=== PATIENT | male | born 1955 | race Caucasian/White ===

== ENCOUNTER 2016-07-25 11:44 | Emergency (ER) | payer BC ==
[~2016-07-25] VITALS: Ht 175.3 cm; Wt 82.9 kg
[2016-07-25 11:54] VITALS: TEMP 36.5
[2016-07-25] MEDS: NITROGLYCERIN 0.4 MG SL PER TAB CHARGE SL PRN ×3 (12:13→14:02)
[2016-07-25] MEDS ORDERED: INHALER INH (12:27)
--- NOTE | 2016-07-25 12:36 | DIAGNOSTIC IMAGING REPORT ---
CHEST ONE VIEW PORTABLE HISTORY: Atypical Chest Pain COMPARISON: None. FINDINGS: The heart is mildly enlarged. No pleural effusions. No pneumothorax. Mild bibasilar interstitial thickening is likely chronic. There appears be a 1.7 cm focal density within the periphery of the left midlung zone. IMPRESSION: 1. A 1.7 cm focal density within the periphery of the left midlung zone. Follow-up chest CT is recommended to exclude a pulmonary lesion. 2. Cardiomegaly. Electronically signed by: Lenny Boyd M.D. 07/25/2016 12:35 PM Dictated Date/Time: 07/25/2016 12:29 PM
[2016-07-25 12:45] VITALS: O2SAT 98; Ht 175.3 cm; Wt 82.9 kg
[2016-07-25 12:57] LABS: BASO % 0.2 %; BASO ABS # 0.02 K/uL (0-0.2); COMPLETE YES; EOS % 0.1 %; HEMATOCRIT 44.9 % (42-52); IG% 0.3 %; LYMPH ABS # 2.06 K/uL (1.2-3.4); MEAN CELL VOLUME 88.6 fL (80-100); MEAN CORPUSCULAR HEMOGLOBIN 29.6 pg (25-34); MEAN CORPUSCULAR HGB CONC 33.4 g/dl (32-36); MEAN PLATELET VOLUME 10.9 fL (7.4-10.4); NEUT % 69.4 %; PLATELET COUNT 175 K/uL (130-400); RED BLOOD COUNT 5.07 M/uL (4.7-6.1); WHITE BLOOD COUNT 11.43 K/uL (4.8-10.8)
[2016-07-25 12:59] LABS: BUN/CREATININE RATIO 19.5 (10-20); CALCIUM 8.4 mg/dl (8.5-10.1); CREATININE 1.4 mg/dl (0.60-1.40); POTASSIUM 4.4 mmol/L (3.5-5.1)
[2016-07-25 13:15] LABS: CKMB/CK RATIO 2.5 (0-3.0)
[2016-07-25] MEDS ORDERED: SODIUM CHLORIDE 0.9% 1000ML 1,000 ML IV STA (13:17)
[2016-07-25] MEDS ORDERED: OPTIRAY 320 IV PRN (13:30)
--- NOTE | 2016-07-25 14:53 | DIAGNOSTIC IMAGING REPORT ---
CHEST COMBO ANGIO DISSECTION CLINICAL HISTORY: Chest and epigastric pain. Fluid and chest. Elevated troponin. Evaluate for dissection. COMPARISON STUDY: Chest radiograph performed earlier today. TECHNIQUE: Unenhanced and arterial phase imaging of the chest was performed. Injection of 119 cc Optiray 320 IV was uneventful. Sagittal and coronal reconstructions were viewed as well as maximal intensity projections on an independent 3-D workstation. The abdomen and pelvis will be reported separately. FINDINGS: There is no evidence of intramural hematoma or dissection within the thoracic aorta. There is extensive aortic valvular calcification. There is moderate aortic dilatation of the level of the sinuses of Valsalva, measuring 5.3 cm. There is mild dilatation of the ascending aorta, measuring 4.4 cm just distal to the level of the main pulmonary artery. No pulmonary emboli are identified. There is moderate cardiomegaly. There is no pericardial effusion. A moderate right pleural effusion is present. Right lower lobe opacity favors atelectasis. Additional airspace opacity suggest atelectasis. There are mild groundglass opacities and interlobular septal thickening consistent with pulmonary edema. A possible abnormality on chest radiograph from earlier today was artifactual. Bony thorax is unremarkable. The abdomen and pelvis will be reported separately. There is a small amount of ascites as well as hypodense hepatic lesions which favor cysts. A few prominent mediastinal lymph nodes are present. IMPRESSION: 1. No aortic dissection. Moderate dilatation of the aortic root, measuring 5.3 cm at the level the sinuses of Valsalva with extensive aortic valvular calcification. Mild dilatation of the remainder of the ascending aorta. 2. Moderate right pleural effusion. 3. Moderate to marked cardiomegaly. 4. Findings consistent with mild pulmonary edema. Electronically signed by: Fili Corbin M.D. 07/25/2016 2:51 PM Dictated Date/Time: 07/25/2016 2:40 PM
[2016-07-25] MEDS ORDERED: METOPROLOL TARTRATE 1 MG/ML VIAL IV STA (14:57)
--- NOTE | 2016-07-25 15:00 | DIAGNOSTIC IMAGING REPORT ---
ABDOMEN AND PELVIS CTA WITH IV CONTRAST CT DOSE: 860.68 mGy.cm HISTORY: Left upper quadrant abdominal pain. TECHNIQUE: Multiaxial CT images of the abdomen and pelvis were performed following the use of intravenous contrast to evaluate the aorta. Maximal intensity projection images were also obtained. COMPARISON STUDY: None. FINDINGS: The heart is enlarged. Small right pleural effusion. The abdominal aorta, celiac artery, superior mesenteric artery, renal arteries, and inferior mesenteric artery, and bilateral iliac arteries are widely patent and normal and caliber. No evidence for an aortic dissection. Severe disc space narrowing with fusion of the L5 and S1 vertebral bodies. Small amount of ascites. Mild body wall and retroperitoneal edema. Multiple hypodense lesions seen within the liver. These are incompletely characterized on this study but favor cysts. Dominant lesion within the right hepatic dome measures 2.1 cm. Mild pericholecystic edema. The pancreas, spleen, and adrenal glands are unremarkable. Mild bilateral perinephric edema. There are 2 hypodense lesions within the left kidney measuring 11 mm. Subcentimeter retroperitoneal lymph nodes do not meet CT criteria for pathologic involvement. Small hiatus hernia. The bladder is unremarkable. The prostate gland is mildly enlarged. Small fat-containing bilateral inguinal hernias. A few colonic diverticula. Focal extra luminal gas lateral to the ascending colon on image 219. This measures 3.5 x 1.7 cm. This consistent with a contained microperforation. No evidence for bowel obstruction. IMPRESSION: 1. Normal caliber abdominal aorta with no evidence for dissection. 2. A 3.5 x 1.7 cm focal area of extraluminal gas adjacent to the ascending colon. This is consistent with a contained microperforation. The exact etiology is not clearly identified but favors acute diverticulitis. 3. Colonic diverticulosis. 4. The appendix is not identified. 5. Small amount of ascites and mild body wall and retroperitoneal edema. 6. Mild pericholecystic edema. This is also likely due to the patient's edematous state. However, a superimposed cholecystitis cannot be excluded. Clinical correlation recommended. 7. Cardiomegaly with a small right pleural effusion. Electronically signed by: Lenny Boyd M.D. 07/25/2016 2:58 PM Dictated Date/Time: 07/25/2016 2:43 PM
[2016-07-25] MEDS ORDERED: HEPARIN SOD 5000 UNIT/0.5 ML CARP ONE (15:05)
[2016-07-25] MEDS ORDERED: HEPARIN 25000 UNIT/500 ML D5W ONE (15:05)
[2016-07-25] MEDS ORDERED: PIPERACILLIN/TAZOBACTAM 4.5 GM/100ML D5W IV STA (15:06)
[2016-07-25] MEDS ORDERED: ACETAMINOPHEN 325 MG TAB PO PRN (15:30)
[2016-07-25] MEDS ORDERED: ONDANSETRON INJ 2 MG/ML 2 ML VIAL IV PRN (15:30)
[2016-07-25] MEDS ORDERED: NITROGLYCERIN 0.4 MG SL PER TAB CHARGE SL PRN (15:30)
--- NOTE | 2016-07-25 15:50 | EMERGENCY ROOM VISIT NOTE ---
History Report prepared by Perez: Hemalatha Hernandez Under the Supervision of: Juancho NolascoO. First contact with patient: 11:52 Chief Complaint: OTHER COMPLAINT Stated Complaint: EPIGASTRIC PAIN History of Present Illness The patient is a 60 year old male who presents to the Emergency Room with complaints of worsening chest pain for the past month. 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 He has been having epigastric/left upper quadrant abdominal pain and pain into his left chest and feels a tightness. He notes tightness in his chest and shortness of breath that are worse with exertion and alleviated if he rests. These symptoms have gotten significantly worse over the past week. He to [facility] this morning for evaluation of his symptoms and was sent to the ED for further evaluation. The patient was brought to the ED by ambulance and was given 324 mg of aspirin en route. He rates his current pain as a 5/10 in severity. He denies any personal history of heart disease, diabetes, or hypertension. Pt denies headache, change in vision, fevers, cough, rhinorrhea, sore throat, nausea, vomiting, diarrhea, pain with urination, and melena. He denies any previous head bleeds, head surgery, bleeding in stool, or hematuria. Source of History: patient Onset: 1 month ago Position: chest (left) Symptom Intensity: 5/10 Quality: other (tightness) Timing: worsening Modifying Factors (Worsening): exertion Modifying Factors (Relieving): rest Associated Symptoms: + SOB, + abdominal pain, No fevers, No headache, No sorethroat, No cough, No nausea, No vomiting, No melena, No diarrhea, No urinary symptoms Review of Systems See HPI for pertinent positives & negatives. A total of 10 systems reviewed and were otherwise negative. Past Medical & Surgical Medical Problems: (1) No pertinent past medical history Family History No pertinent history stated. Social History Smoking Status: Never Smoker Smokeless Tobacco Use: No Alcohol Use: none Occupation Status: employed Current/Historical Medications Scheduled PRN [Inhaler], 1 PUFF INH for SOB/Wheezing Allergies Coded Allergies: No Known Allergies (Unverified , 07/25/16) Physical Exam Vital Signs Date Time Temp Pulse Resp B/P (MAP) Pulse Ox O2 Delivery O2 Flow Rate FiO2 07/25/16 17:31 99 Nasal Cannula 2.0 07/25/16 17:30 102 18 102/87 86 Room Air 07/25/16 17:18 102 16 103/85 93 Room Air 07/25/16 17:00 100 18 99/88 96 Room Air 07/25/16 16:34 98 24 101/86 07/25/16 15:58 92 16 95/79 99 Room Air 07/25/16 15:17 101 16 116/100 96 Room Air 07/25/16 15:12 111 116/100 07/25/16 14:55 111 18 111/89 97 Room Air 07/25/16 14:30 112 16 113/93 95 Room Air 07/25/16 14:00 112 18 120/105 96 Room Air 07/25/16 13:10 110 16 120/96 95 Room Air 07/25/16 12:45 98 Room Air 07/25/16 12:45 112 16 118/93 98 Room Air 07/25/16 12:30 110 16 115/87 98 Room Air 07/25/16 12:26 110 07/25/16 12:12 112 16 119/97 98 Room Air 07/25/16 11:54 36.5 115 16 121/93 96 Room Air Physical Exam GENERAL: alert, sitting up in bed, ill appearing, mild distress EYE EXAM: normal conjunctiva OROPHARYNX: no exudate, no erythema, lips, buccal mucosa, and tongue normal and mucous membranes are moist NECK: supple, no nuchal rigidity, no adenopathy, non-tender LUNGS: Clear to auscultation. Normal chest wall mechanics HEART: +JIA, S1 normal and S2 normal ABDOMEN: abdomen soft, non-tender, normo-active bowel sounds, no masses, no rebound or guarding. BACK: Back is symmetrical on inspection and there is no deformity, no midline tenderness, no CVA tenderness. SKIN: no rashes and no bruising UPPER EXTREMITIES: upper extremities are grossly normal. LOWER EXTREMITIES: calves equal bilaterally with pitting edema. NEURO EXAM: Normal sensorium, cranial nerves II-XII grossly intact, normal speech, no gross weakness of arms, no gross weakness of legs. Medical Decision & Procedures ER Provider Diagnostic Interpretation: Radiology results as stated below per my review and the radiologist's interpretation: CHEST ONE VIEW PORTABLE HISTORY: Atypical Chest Pain COMPARISON: None. FINDINGS: The heart is mildly enlarged. No pleural effusions. No pneumothorax. Mild bibasilar interstitial thickening is likely chronic. There appears be a 1.7 cm focal density within the periphery of the left midlung zone. IMPRESSION: 1. A 1.7 cm focal density within the periphery of the left midlung zone. Follow-up chest CT is recommended to exclude a pulmonary lesion. 2. Cardiomegaly. Electronically signed by: Lenny Boyd M.D. 07/25/2016 12:35 PM Dictated Date/Time: 07/25/2016 12:29 PM CHEST COMBO ANGIO DISSECTION CLINICAL HISTORY: Chest and epigastric pain. Fluid and chest. Elevated troponin. Evaluate for dissection. COMPARISON STUDY: Chest radiograph performed earlier today. TECHNIQUE: Unenhanced and arterial phase imaging of the chest was performed. Injection of 119 cc Optiray 320 IV was uneventful. Sagittal and coronal reconstructions were viewed as well as maximal intensity projections on an independent 3-D workstation. The abdomen and pelvis will be reported separately. FINDINGS: There is no evidence of intramural hematoma or dissection within the thoracic aorta. There is extensive aortic valvular calcification. There is moderate aortic dilatation of the level of the sinuses of Valsalva, measuring 5.3 cm. There is mild dilatation of the ascending aorta, measuring 4.4 cm just distal to the level of the main pulmonary artery. No pulmonary emboli are identified. There is moderate cardiomegaly. There is no pericardial effusion. A moderate right pleural effusion is present. Right lower lobe opacity favors atelectasis. Additional airspace opacity suggest atelectasis. There are mild groundglass opacities and interlobular septal thickening consistent with pulmonary edema. A possible abnormality on chest radiograph from earlier today was artifactual. Bony thorax is unremarkable. The abdomen and pelvis will be reported separately. There is a small amount of ascites as well as hypodense hepatic lesions which favor cysts. A few prominent mediastinal lymph nodes are present. IMPRESSION: 1. No aortic dissection. Moderate dilatation of the aortic root, measuring 5.3 cm at the level the sinuses of Valsalva with extensive aortic valvular calcification. Mild dilatation of the remainder of the ascending aorta. 2. Moderate right pleural effusion. 3. Moderate to marked cardiomegaly. 4. Findings consistent with mild pulmonary edema. Electronically signed by: Fili Corbin M.D. 07/25/2016 2:51 PM Dictated Date/Time: 07/25/2016 2:40 PM ABDOMEN AND PELVIS CTA WITH IV CONTRAST CT DOSE: 860.68 mGy.cm HISTORY: Left upper quadrant abdominal pain. TECHNIQUE: Multiaxial CT images of the abdomen and pelvis were performed following the use of intravenous contrast to evaluate the aorta. Maximal intensity projection images were also obtained. COMPARISON STUDY: None. FINDINGS: The heart is enlarged. Small right pleural effusion. The abdominal aorta, celiac artery, superior mesenteric artery, renal arteries, and inferior mesenteric artery, and bilateral iliac arteries are widely patent and normal and caliber. No evidence for an aortic dissection. Severe disc space narrowing with fusion of the L5 and S1 vertebral bodies. Small amount of ascites. Mild body wall and retroperitoneal edema. Multiple hypodense lesions seen within the liver. These are incompletely characterized on this study but favor cysts. Dominant lesion within the right hepatic dome measures 2.1 cm. Mild pericholecystic edema. The pancreas, spleen, and adrenal glands are unremarkable. Mild bilateral perinephric edema. There are 2 hypodense lesions within the left kidney measuring 11 mm. Subcentimeter retroperitoneal lymph nodes do not meet CT criteria for pathologic involvement. Small hiatus hernia. The bladder is unremarkable. The prostate gland is mildly enlarged. Small fat-containing bilateral inguinal hernias. A few colonic diverticula. Focal extra luminal gas lateral to the ascending colon on image 219. This measures 3.5 x 1.7 cm. This consistent with a contained microperforation. No evidence for bowel obstruction. IMPRESSION: 1. Normal caliber abdominal aorta with no evidence for dissection. 2. A 3.5 x 1.7 cm focal area of extraluminal gas adjacent to the ascending colon. This is consistent with a contained microperforation. The exact etiology is not clearly identified but favors acute diverticulitis. 3. Colonic diverticulosis. 4. The appendix is not identified. 5. Small amount of ascites and mild body wall and retroperitoneal edema. 6. Mild pericholecystic edema. This is also likely due to the patient's edematous state. However, a superimposed cholecystitis cannot be excluded. Clinical correlation recommended. 7. Cardiomegaly with a small right pleural effusion. Electronically signed by: Lenny Boyd M.D. 07/25/2016 2:58 PM Dictated Date/Time: 07/25/2016 2:43 PM Laboratory Results 07/25/16 12:30 Red Blood Count 5.07, Mean Corpuscular Volume 88.6, Mean Corpuscular Hemoglobin 29.6, Mean Corpuscular Hemoglobin Concent 33.4, Mean Platelet Volume 10.9, Neutrophils (%) (Auto) 69.4, Lymphocytes (%) (Auto) 18.0, Monocytes (%) (Auto) 12.0, Eosinophils (%) (Auto) 0.1, Basophils (%) (Auto) 0.2, Neutrophils # (Auto ) 7.94, Lymphocytes # (Auto) 2.06, Monocytes # (Auto) 1.37, Eosinophils # (Auto ) 0.01, Basophils # (Auto) 0.02 07/25/16 12:30 Test 07/25/16 12:30 07/25/16 18:00 07/25/16 18:06 White Blood Count 11.43 K/uL (4.8-10.8) Red Blood Count 5.07 M/uL (4.7-6.1) Hemoglobin 15.0 g/dL (14.0-18.0) Hematocrit 44.9 % (42-52) Mean Corpuscular Volume 88.6 fL (80-100) Mean Corpuscular Hemoglobin 29.6 pg (25-34) Mean Corpuscular Hemoglobin Concent 33.4 g/dl (32-36) Platelet Count 175 K/uL (130-400) Mean Platelet Volume 10.9 fL (7.4-10.4) Neutrophils (%) (Auto) 69.4 % Lymphocytes (%) (Auto) 18.0 % Monocytes (%) (Auto) 12.0 % Eosinophils (%) (Auto) 0.1 % Basophils (%) (Auto) 0.2 % Neutrophils # (Auto) 7.94 K/uL (1.4-6.5) Lymphocytes # (Auto) 2.06 K/uL (1.2-3.4) Monocytes # (Auto) 1.37 K/uL (0.11-0.59) Eosinophils # (Auto) 0.01 K/uL (0-0.5) Basophils # (Auto) 0.02 K/uL (0-0.2) RDW Standard Deviation 45.4 fL (36.4-46.3) RDW Coefficient of Variation 14.3 % (11.5-14.5) Immature Granulocyte % (Auto) 0.3 % Immature Granulocyte # (Auto) 0.03 K/uL (0.00-0.02) Anion Gap 13.0 mmol/L (3-11) Est Creatinine Clear Calc Drug Dose 54.7 ml/min Estimated GFR () 62.0 Estimated GFR (Non- 53.5 BUN/Creatinine Ratio 19.5 (10-20) Calcium Level 8.4 mg/dl (8.5-10.1) Total Bilirubin 2.0 mg/dl (0.2-1) Direct Bilirubin 0.6 mg/dl (0-0.2) Aspartate Amino Transf (AST/SGOT) 59 U/L (15-37) Alanine Aminotransferase (ALT/SGPT) 101 U/L (12-78) Alkaline Phosphatase 63 U/L (45-117) Total Creatine Kinase 202 U/L (39-308) Total Protein 6.3 gm/dl (6.4-8.2) Albumin 3.7 gm/dl (3.4-5.0) Lipase 134 U/L (73-393) Hepatitis C Antibody Screen NEG (NEG) Creatine Kinase MB Ratio (0-3.0) Medications Administered Medications (Trade) Dose Ordered Sig/Ginette Route Start Time Stop Time Status Last Admin Dose Admin Nitroglycerin (Nitrostat Tab) 0.4 mg Q5M PRN SL 07/25/16 12:15 07/25/16 16:10 DC 07/25/16 14:02 0.4 MG Sodium Chloride 1,000 ml @ 999 mls/hr Q1H1M STAT IV 07/25/16 13:17 07/25/16 14:17 DC 07/25/16 13:34 999 MLS/HR Metoprolol Tartrate (Lopressor Iv) 5 mg NOW STAT IV 07/25/16 14:57 07/25/16 14:58 DC 07/25/16 15:12 5 MG Piperacillin Sod/ Tazobactam Sod (Zosyn Iv) 4.5 gm NOW STAT IV 07/25/16 15:06 07/25/16 15:07 DC 07/25/16 15:16 4.5 GM Furosemide (Lasix Inj) 20 mg NOW STAT IV 6/14/17 16:09 07/25/16 16:10 DC 07/25/16 16:09 20 MG ECG Indication: chest pain Rate (beats per minute): 111 Rhythm: sinus tachycardia Findings: nonspecific-ST abn (lateral and inferior), Q waves (Septal), left axis deviation Comparison ECG Date: no prior available ED Course ED COURSE: Vital signs were reviewed and showed tachycardic. The patients medical record was reviewed The above diagnostic studies were performed and reviewed. ED treatments and interventions as stated above. 1152: The patient was evaluated in room B12B. A complete history and physical examination was performed. 1215: Nitroglycerin 0.4 mg SL - PRN 1317: NSS 1000 ml @ 999 mls/hr IV 1325: At this time I performed a bedside US which revealed poor LV contractility , fluid in right chest. 1444: I reviewed the patient's case with Dr. Narvaez. The [facility] will evaluate the patient for further management. 1449: I spoke with Dr. Godwin of cardiology. We discussed the patient's case and he is in agreement with the treatment plan. 1453: I updated the patient on his results and treatment plan. I answered all pertaining questions that he had. 1457: Lopressor 5 mg IV 1506: Zosyn 4.5 gm IV 1514: I discussed the patient's case with SEFERINO Leary. 1556: I reassessed the patient at this time. Cardiology was the bedside. Internal medicine has discussed the patient's case with cardiology and the ICU. 1612: The patient is going to be transferred for further management. 1623: At this time I discussed the patient's case with Dr. Hough, the virtualization engineer at [facility]. Dr. Hough accepted the patient for transfer to the ICU for further management. The patient will be transported via [facility]. 1647: Upon reevaluation, the patient's BP is 101 and HR is 95. I updated him on the results and treatment plan. I answered all pertaining questions that he had. He expressed understanding and verbalized agreement. We are waiting for a bed assignment from [place]. 1704: I spoke with Dr. Herzog of general surgery. We discussed the patient's case and he questions gallbladder perforation vs. diverticular perforation. Medical Decision Differential diagnoses includes but is not limited to acute coronary syndrome, myocardial infarction, pericarditis, pulmonary embolus, aortic dissection, pneumonia, pneumothorax, musculoskeletal, shingles, esophageal. Patient is a 60-year-old male who presents the ER for exertional pain in his left upper quadrant which he describes as a tightness associated with shortness of breath. EKG shows ST wave changes in the lateral leads along with a slight elevation in V2. Patient has pitting edema in bilateral lower extremities associated with my bedside echo which showed pleural effusion in the right lung and a dilated LV with poor contractility. Based on his atypical presentation I sent him for a dissection study. This did show enlarged heart with calcified aortic valve, dilated aorta, pleural effusion and free air which I question if it is secondary to a diabetic take the gallbladder. Labs have an elevated troponin at 0.1 along with an elevated bilirubin. I was initially going to place him on heparin but with the perforation I elected to hold on the heparin and placed him on Zosyn. He was updated and I discussed case with cardiology and internal medicine. He was given Lopressor following the negative CT. He was admitted for further workup of his perforated viscus, elevated troponin, dilated aorta and CHF secondary to a poor EF. Cardiology eventually performed a bedside echo which showed EF of less than 20% associated with severe and a dilated aortic root. Following this all additional beta blockers were held. He was given Lasix. The decision was made to transfer him to [facility]. I spoke with the ICU attending and they accepted him that he'll be transported via [facility]. Systolic blood pressures have remained in the low 90s and heart rate has remained in the 90s to low 100s. Consults Time Called: 1441 Consulting Physician: Dr. Narvaez Returned Call: 1444 I reviewed the patient's case with Dr. Narvaez. The [facility] will evaluate the patient for further management. Additional Consults: Time Called: 1446 Consulted Physician: Dr. Godwin Returned Call: 1443 Additional Comments: I spoke with Dr. Godwin of cardiology. We discussed the patient's case and he is in agreement with the treatment plan. Time Called: 1512 Consulted Physician: SEFERINO Leary Returned Call: 1519 Additional Comments: I discussed the patient's case with SEFERINO Leary. Impression Primary Impression: Aortic stenosis Additional Impressions: NSTEMI (non-ST elevated myocardial infarction) Intra-abdominal free air of unknown etiology perforation of gallbladder vs diverticulum Heart failure with acute decompensation, type unknown Critical Care I have personally spent 75 minutes of critical care time in the direct management of this patient. This includes bedside care, interpretation of diagnostic studies, and testing, discussion with consultants, patient, and family members, and other required patient management activities. This 75 minutes is in excess of all separately billable procedures. Scribe Attestation The scribe's documentation has been prepared under my direction and personally reviewed by me in its entirety. I confirm that the note above accurately reflects all work, treatment, procedures, and medical decision making performed by me. Departure Information Dispostion Transfer Acute Care Facility Referrals Leatha Goldstein M.D. (PCP) Patient Instructions [facility] Problem Qualifiers Primary Impression: Aortic stenosis Cardiac valve disease etiology: etiology unspecified Qualified Codes: I35.0 - Nonrheumatic aortic (valve) stenosis Additional Impressions: Heart failure with acute decompensation, type unknown Heart failure type: unspecified heart failure type Qualified Codes: I50.9 - Heart failure, unspecified
[2016-07-25] MEDS ORDERED: FUROSEMIDE 40 MG/4 ML VIAL IV STA (16:09)
[2016-07-25] MEDS ORDERED: FUROSEMIDE 40 MG/4 ML VIAL ONE (16:10)
[2016-07-25] MEDS ORDERED: FUROSEMIDE INJ 20 MG in SYRINGE 0 ML IV ONE (16:15)
--- NOTE | 2016-07-25 16:56 | ECHOCARDIOGRAM REPORT ---
*NOTICE TO RECEIVING [facility] This information is strictly Confidential and protected under [place] law. [place] law prohibits you from making any further disclosure of this information unless further disclosure is expressly permitted by the written consent of the person to whom it pertains or is authorized by law. A general authorization for the release of medical or other information is not sufficient for this purpose. Hospital accepts no responsibility if the information is made available to any other person, INCLUDING THE PATIENT. Interpretation Summary * Name: VIRAL BAUTISTA Study Date: 07/25/2016 03:28 PM BP: 95/79 mmHg * Patient Location: C.EDB HR: 92 * : 1955 (M/d/yyyy) Gender: Male Height: 69 in * Age: 60 yrs Ethnicity: [place] Weight: 182 lb * Ordering Physician: Jamarcus Godwin * Referring Physician: Self, Referred * Performed By: Jaqueline Waddell, internal controls analyst and Luanne Kline RDCS * * Reason For Study: Cardiomegaly * BSA: 2.0 m2 * The study was technically adequate. * There is no comparison study available. * -- Conclusions -- * The left ventricle is moderately dilated. * Ejection Fraction = <15%. * The right ventricle is moderately dilated. * The right ventricular systolic function is severely reduced. * The aortic valve is bicuspid. * The aortic valve is severely calcified. * Severe valvular aortic stenosis. * There is mild to moderate tricuspid regurgitation. * The estimated systolic PAP is 46mmHg. * Dilated inferior vena cava with reduced collapsability with sniff indicates an elevated right atrial pressure of 15 mmHg * Mild aortic root dilatation. * Mildly dilated ascending aorta. Procedure Details * A complete two-dimensional transthoracic echocardiogram was performed (2D, M-mode, Doppler and color flow Doppler). Left Ventricle * The left ventricle is moderately dilated. * There is normal left ventricular wall thickness. * Ejection Fraction = <15%. * There is severe global hypokinesis of the left ventricle. Right Ventricle * The right ventricle is moderately dilated. * The right ventricular systolic function is severely reduced. Atria * The left atrium is moderately dilated. * The right atrium is mildly dilated. Mitral Valve * The mitral valve anatomy is normal. * There is no mitral valve stenosis. * Significant mitral regurgitation is absent. Tricuspid Valve * The tricuspid valve anatomy is normal. * There is mild to moderate tricuspid regurgitation. * The estimated systolic PAP is 46mmHg. Aortic Valve * The aortic valve is bicuspid. * The aortic valve is severely calcified. * Severe valvular aortic stenosis. * There is no significant aortic regurgitation. Pulmonic Valve * The pulmonary valve is not well seen, but the Doppler examination is normal without significant regurgitation or stenosis. Great Vessels * Mild aortic root dilatation. * Mildly dilated ascending aorta. Pericardium/Pleural * There is no pericardial effusion. Great Vessels * Dilated inferior vena cava with reduced collapsability with sniff indicates an elevated right atrial pressure of 15 mmHg Left Ventricular Diastolic Function * Pulse wave TDI of the anterior and posterior mitral annulas demonstrates abnormal LV relaxation MMode 2D Measurements and Calculations IVSd 1.1 cm LVIDd 6.3 cm LVIDs 5.9 cm LVPWd 1.2 cm IVS/LVPW 0.93 FS 7.4 % EDV(Teich) 204.7 ml ESV(Teich) 171.6 ml EF(Teich) 16.2 % EDV(cubed) 255.8 ml ESV(cubed) 202.9 ml EF(cubed) 20.7 % LV mass(C)d 315.2 grams LV mass(C)dI 158.8 grams/m\S\2 SV(Teich) 33.1 ml SI(Teich) 16.7 ml/m\S\2 SV(cubed) 53.0 ml SI(cubed) 26.7 ml/m\S\2 Ao root diam 4.2 cm Ao root area 13.7 cm\S\2 LA dimension 4.1 cm asc Aorta Diam 3.9 cm LA/Ao 0.98 LVOT diam 2.0 cm LVOT area 3.1 cm\S\2 LVAd ap4 38.2 cm\S\2 LVLd ap4 8.0 cm EDV(MOD-sp4) 151.3 ml EDV(sp4-el) 155.2 ml LVAs ap4 36.1 cm\S\2 LVLs ap4 8.1 cm ESV(MOD-sp4) 132.8 ml ESV(sp4-el) 136.3 ml EF(MOD-sp4) 12.3 % EF(sp4-el) 12.2 % LVAd ap2 44.8 cm\S\2 LVLd ap2 8.4 cm EDV(MOD-sp2) 191.2 ml EDV(sp2-el) 202.1 ml LVAs ap2 42.3 cm\S\2 LVLs ap2 8.6 cm ESV(MOD-sp2) 171.4 ml ESV(sp2-el) 175.9 ml EF(MOD-sp2) 10.3 % EF(sp2-el) 13.0 % LVLd %diff 5.2 % EDV(MOD-bp) 175.6 ml LVLs %diff 5.8 % ESV(MOD-bp) 151.2 ml EF(MOD-bp) 13.9 % SV(MOD-sp4) 18.6 ml SI(MOD-sp4) 9.4 ml/m\S\2 SV(MOD-sp2) 19.7 ml SI(MOD-sp2) 9.9 ml/m\S\2 SV(MOD-bp) 24.4 ml SI(MOD-bp) 12.3 ml/m\S\2 SV(sp4-el) 18.9 ml SI(sp4-el) 9.5 ml/m\S\2 SV(sp2-el) 26.2 ml SI(sp2-el) 13.2 ml/m\S\2 Doppler Measurements and Calculations MV E max niyah 31.2 cm/sec MV A max niyah 16.0 cm/sec MV E/A 1.9 MV dec time 0.29 sec Ao V2 max 170.6 cm/sec Ao max PG 11.6 mmHg Ao max PG (full) 11.4 mmHg Ao V2 mean 121.0 cm/sec Ao mean PG 6.8 mmHg Ao V2 VTI 26.8 cm AYESHA(V,A) 0.48 cm\S\2 AYESHA(V,D) 0.48 cm\S\2 LV V1 max PG 0.28 mmHg LV V1 max 26.5 cm/sec SV(Ao) 367.4 ml SI(Ao) 185.1 ml/m\S\2 PA V2 max 47.8 cm/sec PA max PG 0.91 mmHg PA acc slope 378.1 cm/sec\S\2 PA acc time 0.07 sec PI max niyah 152.2 cm/sec PI max PG 9.3 mmHg PI dec slope 72.3 cm/sec\S\2 PI P1/2t 616.8 msec TR max niyah 281.2 cm/sec PA pr(Accel) 47.3 mmHg
--- NOTE | 2016-07-25 17:00 | Medical Consult ---
Consultation Date of Consultation: Jul 25, 2016. Attending Physician: Dr. Narvaez Reason for Consultation: Admission History of Present Illness 60 year old male who presents to the ER with reports of LUQ abdominal pain. Patient is a somewhat poor historian. He has not seen a physician in 20 years. He denies any known medical problems. He reports increasing cough and shortness of breath for the past one month. He thought he had bronchitis. He went to an outpatient provider today and was referred to the ER for further evaluation. He reports that while he was walking out of the office he developed LUQ abdominal pain. He also felt short of breath with it. He reports that once he rested it improved. He describes the pain as a pressure and rates it #10/10 at it's worst. Patient received 3 total doses of SL nitro. He reports the pain resolved with the first two doses however no improvement with the third dose. He reports mild LUQ pain currently. He denies ever having this pain before. He denies chest pain and palpitations. He denies nausea, vomiting, or diarrhea. No lightheadedness, dizziness, diaphoresis, or syncopal events. He has BL ankle edema noted on exam he reports today is the first day he has noticed this edema. In the ER, patient was tachycardic in the 110s. Labs showed WBC 11K, troponin 0.106, and mildly elevated LFTs. CT ruled out dissection however showed diverticulitis with micro perf, cardiomegaly, and aortic root dilatation. Bedside echo was preformed that showed EF < 20% and severe aortic stenosis with bicuspid aortic valve. He was given IVF, metoprolol 5mg IV, and IV Zosyn. Past Medical/Surgical History Medical Problems: (1) No pertinent past medical history Status: Chronic Family History denies family history of premature CAD, DM, or CVA Social History Smoking Status: Never Smoker Alcohol Use: none Marital Status: single Occupation Status: employed Allergies Coded Allergies: No Known Allergies (Unverified , 07/25/16) Home Medications [Inhaler] 1 Puff INH PRN Current Inpatient Medications Current Inpatient Medications Medications (Trade) Dose Ordered Sig/Ginette Route Start Time Stop Time Status Last Admin Dose Admin Ioversol (Optiray 320) 125 ml UD PRN IV 07/25/16 13:30 07/29/16 13:29 Acetaminophen (Tylenol Tab) 650 mg Q4H PRN PO 07/25/16 15:30 08/24/16 15:29 Ondansetron HCl (Zofran Inj) 4 mg Q6H PRN IV 07/25/16 15:30 08/24/16 15:29 Nitroglycerin (Nitrostat Tab) 0.4 mg UD PRN SL 07/25/16 15:30 08/24/16 15:29 Review of Systems ROS per HPI, all other systems reviewed and negative Physical Exam Date Time Temp Pulse Resp B/P (MAP) Pulse Ox O2 Delivery O2 Flow Rate FiO2 07/25/16 15:58 92 16 95/79 99 Room Air 07/25/16 15:17 101 16 116/100 96 Room Air 07/25/16 15:12 111 116/100 07/25/16 14:55 111 18 111/89 97 Room Air 07/25/16 14:30 112 16 113/93 95 Room Air 07/25/16 14:00 112 18 120/105 96 Room Air 07/25/16 13:10 110 16 120/96 95 Room Air 07/25/16 12:45 98 Room Air 07/25/16 12:45 112 16 118/93 98 Room Air 07/25/16 12:30 110 16 115/87 98 Room Air 07/25/16 12:26 110 07/25/16 12:12 112 16 119/97 98 Room Air 07/25/16 11:54 36.5 115 16 121/93 96 Room Air General Appearance: no apparent distress Head: normocephalic Eyes: normal inspection ENT: hearing grossly normal Neck: supple, no JVD Respiratory/Chest: no respiratory distress, + crackles (faint, BL bases) Cardiovascular: + tachycardia (regular rhythm), + pertinent finding (+2 pitting BL ankle edema) Abdomen/GI: normal bowel sounds, soft, + tenderness (LUQ, epigastric) Extremities/Musculoskelatal: normal inspection, no calf tenderness Neurologic/Psych: no motor/sensory deficits, alert, normal mood/affect, oriented x 3 Skin: normal color, warm/dry Laboratory Results Last 24 Hours Test 07/25/16 12:30 07/25/16 15:58 White Blood Count 11.43 K/uL Red Blood Count 5.07 M/uL Hemoglobin 15.0 g/dL Hematocrit 44.9 % Mean Corpuscular Volume 88.6 fL Mean Corpuscular Hemoglobin 29.6 pg Mean Corpuscular Hemoglobin Concent 33.4 g/dl Platelet Count 175 K/uL Mean Platelet Volume 10.9 fL Neutrophils (%) (Auto) 69.4 % Lymphocytes (%) (Auto) 18.0 % Monocytes (%) (Auto) 12.0 % Eosinophils (%) (Auto) 0.1 % Basophils (%) (Auto) 0.2 % Neutrophils # (Auto) 7.94 K/uL Lymphocytes # (Auto) 2.06 K/uL Monocytes # (Auto) 1.37 K/uL Eosinophils # (Auto) 0.01 K/uL Basophils # (Auto) 0.02 K/uL RDW Standard Deviation 45.4 fL RDW Coefficient of Variation 14.3 % Immature Granulocyte % (Auto) 0.3 % Immature Granulocyte # (Auto) 0.03 K/uL Sodium Level 141 mmol/L Potassium Level 4.4 mmol/L Chloride Level 108 mmol/L Carbon Dioxide Level 20 mmol/L Anion Gap 13.0 mmol/L Blood Urea Nitrogen 27 mg/dl Creatinine 1.40 mg/dl Est Creatinine Clear Calc Drug Dose 54.7 ml/min Estimated GFR () 62.0 Estimated GFR (Non- 53.5 BUN/Creatinine Ratio 19.5 Random Glucose 112 mg/dl Calcium Level 8.4 mg/dl Total Bilirubin 2.0 mg/dl Direct Bilirubin 0.6 mg/dl Aspartate Amino Transf (AST/SGOT) 59 U/L Alanine Aminotransferase (ALT/SGPT) 101 U/L Alkaline Phosphatase 63 U/L Total Creatine Kinase 202 U/L Creatine Kinase MB 5.1 ng/ml Creatine Kinase MB Ratio 2.5 Troponin I 0.106 ng/ml Total Protein 6.3 gm/dl Albumin 3.7 gm/dl Lipase 134 U/L Hepatitis C Antibody Screen NEG CXR IMPRESSION: 1. A 1.7 cm focal density within the periphery of the left midlung zone. Follow-up chest CT is recommended to exclude a pulmonary lesion. 2. Cardiomegaly. CTA CHEST IMPRESSION: 1. No aortic dissection. Moderate dilatation of the aortic root, measuring 5.3 cm at the level the sinuses of Valsalva with extensive aortic valvular calcification. Mild dilatation of the remainder of the ascending aorta. 2. Moderate right pleural effusion. 3. Moderate to marked cardiomegaly. 4. Findings consistent with mild pulmonary edema. CTA ABD/PELVIS IMPRESSION: 1. Normal caliber abdominal aorta with no evidence for dissection. 2. A 3.5 x 1.7 cm focal area of extraluminal gas adjacent to the ascending colon. This is consistent with a contained microperforation. The exact etiology is not clearly identified but favors acute diverticulitis. 3. Colonic diverticulosis. 4. The appendix is not identified. 5. Small amount of ascites and mild body wall and retroperitoneal edema. 6. Mild pericholecystic edema. This is also likely due to the patient's edematous state. However, a superimposed cholecystitis cannot be excluded. Clinical correlation recommended. 7. Cardiomegaly with a small right pleural effusion. Assessment & Plan Case discussed with Dr. Godwin (cardiology), Dr. Polo (bobtail driver), Dr. Stone and Helio Bronson PA-C (general surgery). Due to the severity of patient's newly diagnosed cardiac issues (decompensated heart failure with bicuspid aortic valve, severe aortic stenosis, and severe dilated aortic root) in combination with an acute abdomen with perforated diverticulitis, patient would benefit from transfer to tertiary care center as he will be considered a very high risk surgical candidate in the event he requires surgical intervention of his abdomen. Patient is also going to require aortic valve replacement vs repair and repair of the dilated aortic root which will need to be completed at a tertiary care center. Will give patient Lasix 20mg IV now. Discussed with Dr. Galvan (ED) who will arrange for transfer to [facility] [place]. Agree with above note. Patient been transferred to [place].
--- NOTE | 2016-07-25 17:26 | CONSULTATION REPORT ---
DATE OF CONSULTATION: 07/25/2016 REASON FOR CONSULTATION: Abdominal pain. HISTORY OF PRESENT ILLNESS: The patient is a 60-year-old male with complaints of left upper quadrant/epigastric pain with pain in his left chest. He was referred to the ED today by his PCP for chest tightness and shortness of breath. He had a loose bowel movement this morning. His bowels have otherwise been regular. He has not had constipation. He has not had a history of diverticulitis. CT scan showed some free air, approximately 3 x 1 cm along the ascending colon. We were asked to see him for possible diverticular perforation. Since their request he has also had evaluation by Cardiology and has a newly diagnosed severe cardiomyopathy. PAST MEDICAL HISTORY: No history of heart disease, diabetes or hypertension. SOCIAL HISTORY: Denies tobacco use. He thought he had bronchitis as multiple people he works with had this. CURRENT MEDICATIONS: He takes an inhaler 1 puff as needed for wheezing. He has been taking some Mucinex recently over the counter. ALLERGIES: NKDA. OBJECTIVE: GENERAL: He appears in moderate distress. VITAL SIGNS: His pulse is 90-112, respirations are 16, blood pressure 95/79-120/105, pulse ox 99% on room air. HEART AND LUNGS: Shows excess accessory muscle use and tachycardia. ABDOMEN: Soft, nondistended. There is mild left lower quadrant tenderness. No guarding or rebound. LABORATORY DATA: His white count is 11,000 with a left shift, hemoglobin 15.0, hematocrit 44.9, platelets 175,000. Sodium 141, potassium 4.4, BUN 27, creatinine 1.4, glucose 112, bilirubin is 2.0, AST 59, ALT 101, CK-MB is 5.1, troponin 0.106, lipase 134. IMAGING: CT was read as a 3.5 x 1.7 cm focal area of extraluminal gas adjacent to the ascending colon consistent with a microperforation. There was colonic diverticulosis but not significant inflammatory changes of the sigmoid colon. There is some pericholecystic edema, possibly due to edematous state. He also has body wall and retroperitoneal edema. There is cardiomegaly and a small right pleural effusion. IMPRESSION: 1. Cardiomyopathy. 2. Small pneumoperitoneum. PLAN: I am concerned that his limited abdominal findings do not fully explain his current decompensation, or he may have a perforated gallbladder vs diverticulitis. Given his newly diagnosed cardiac condition, I would agree with the hospitalist and cardiology evaluations that he would be better served at a tertiary center where both his cardiac and abdominal issues can be addressed. MARKUS
--- NOTE | 2016-07-25 17:38 | CARDIOLOGY CONSULTATION ---
DATE OF CONSULTATION: 07/25/2016 REFERRING PHYSICIAN: Dr. Radames Galvan of the Emergency Department. REASON FOR CONSULTATION: Elevated troponin, abnormal EKG, and chest discomfort. HISTORY OF PRESENT ILLNESS: Mr. Frank is a 60-year-old gentleman who has not had medical care in more than 20 years. He presented to an urgent care center due to what he perceived as bronchitis. He also noted left upper quadrant and epigastric discomfort. He was referred to the Emergency Department for further evaluation. The patient has noted waxing and waning left upper quadrant as well as epigastric pain since admission in the ED. CT angiogram was performed by the ER physician and was found to be negative for pulmonary embolus or dissection. A microperforation of his colon was discovered. He is also noted to have a severely calcified aortic valve as well as a dilated left and right ventricles with evidence of severe aortic root dilatation at the level of the sinus of Valsalva. A bedside echocardiogram was performed, demonstrating severe left ventricular systolic dysfunction with an ejection fraction of less than 20%. He was also noted to have a severely calcified aortic valve, probably bicuspid as well as significant aortic root enlargement and critical aortic stenosis. The patient reports a history of progressive dyspnea on exertion over the past 6 months. He denies any chest discomfort currently. During my examination in the Emergency Room, he notes waxing and waning epigastric pain. He received 1 liter of normal saline and is somewhat dyspneic at rest. He also received a dose of intravenous beta-kenisha. He denies any exertional chest discomfort recently. He denies any knowledge of any medical issues. He does not take any medications as an outpatient. He denies tobacco use or family history of coronary artery disease. No family history of valvular heart disease. Notes mild orthopnea currently, although he denies this problem recently. He has lower extremity edema on exam; however, he denies any knowledge of this edema. REVIEW OF SYSTEMS: The pertinent positives are noted above. A comprehensive 10-system review is otherwise negative. PAST MEDICAL HISTORY: Denied by the patient. PAST SURGICAL HISTORY: Denied by the patient. SOCIAL HISTORY: He states that he is a lifelong nonsmoker. He denies any alcohol or illicit drug use. FAMILY HISTORY: He denies family history of premature coronary artery disease, sudden cardiac , or valvular heart disease. His mother is still living. He is unaware of his father's medical history. ALLERGIES: No known drug allergies. HOME MEDICATIONS: Inhaler -- unknown medication as needed. ECG on presentation, sinus tachycardia with occasional fusion complexes, nonspecific ST changes. Repeat ECG is unchanged. Chest x-ray on admission: Cardiomegaly, 1.7-cm focal density within the periphery of the left mid lung zone. CT angiography: Negative for PE or dissection, cardiomegaly with a right pleural effusion, contained microperforation of the ascending colon, colonic diverticulosis, small amount of ascites and body wall retroperitoneal edema, and mild pericholecystic edema. LABORATORY DATA: White blood cell count is 11.43, hemoglobin is 15.0, and platelet count is 175. Sodium is 141, potassium is 4.4, chloride is 108, CO2 is 20, BUN is 27, and creatinine is 1.40. His initial troponin is 0.106. His CK-MB is 5.1. His total bilirubin is 2.0 and direct bilirubin is 0.6. His AST is 59. His ALT is 101. Hepatitis screen is negative. Telemetry demonstrates sinus tachycardia. PHYSICAL EXAMINATION: VITAL SIGNS: Temperature is 36.5 degrees centigrade. Pulse is 90 beats per minute and regular, respiratory rate is 16 breaths per minute, and blood pressure is 116/100. GENERAL: Mild distress. He is awake, alert and oriented x3. HEENT: His mucous membranes are moist. There is no scleral icterus. Conjunctivae are pink. NECK: Supple. There is elevated jugular venous distention. There is no carotid bruit. HEART: Regular and borderline tachycardic with a 2/6 systolic ejection murmur heard best at the right second intercostal space. LUNGS: Demonstrate crackles at the bases bilaterally. Diminished breath sounds at the right base noted. No rhonchi or wheeze. ABDOMEN: Diffusely tender with focal tenderness in the epigastric and left upper quadrant region. There is no rebound or guarding. His bowel sounds are hypoactive. EXTREMITIES: Warm and dry. There is +1 pedal and ankle edema bilaterally. His posterior tibial pulses are 1-2/4. His femoral pulse is 2/4 on the right. NEUROLOGIC: Demonstrates no focal motor deficit. FINAL IMPRESSION: 1. A 60-year-old male with microperforation of ascending colon and abdominal pain. 2. Severe cardiomyopathy with an ejection fraction less than 20% and acute decompensated systolic heart failure. 3. Severe aortic stenosis secondary to calcified bicuspid aortic valve. 4. Severe aortic root enlargement. 5. Peripheral edema and pleural effusion secondary to decompensated heart failure. 6. Renal insufficiency, stage 3. PLAN AND RECOMMENDATIONS: The patient has received over 100 mL of intravenous contrast as well as 1000 mL of normal saline. He is mildly volume overloaded, although comfortable at rest. We will diurese the patient with intravenous Lasix at this time. He has received a dose of IV beta-kenisha with mild reduction in heart rate. I would avoid further intravenous beta-kenisha currently as his cardiac output is dependent on his heart rate given his fixed obstruction and severe aortic stenosis in the setting of severely depressed left ventricular ejection fraction. The patient would be considered high cardiovascular risk for any surgical procedures. At this time, his severe aortic stenosis with severe aortic root enlargement meets criteria for surgical intervention. Given his multiple complex medical issues, which are newly discovered at this time, the patient will be transferred for tertiary care center for observation of his perforated colon as well as further workup of his significant cardiovascular/valvular issues. Thank you for allowing me to take part in the care of your patient. 40 minutes critical care time spent including bedside evaluation, review of diagnostic testing, discussion of complex issues with consultants and admitting provider, and formulation / institution of plan of care. MARKUS
[2016-07-25 20:29] VITALS: BP 112/88; O2SAT 98
[2016-07-25 20:36] VITALS: PULSE 104
[2016-10-01] MEDS ORDERED: WARF1TAB6 PO (08:42)
[2016-10-01] MEDS ORDERED: LISI-789 PO (08:42)
[2016-10-01] MEDS ORDERED: CARV6.252 PO (08:42)
== END 2016-07-25 20:37 | disposition short-term general hospital (02) ==
LOC: EDBD 11:44 → C.EDB 11:45 → ENRESERV 15:30 → CANRESERV 15:30 → ENRESERV 15:36 → CANRESERV 15:36 → ENRESERV 16:18 → CANRESERV 16:18 → CANBEDREQ 16:21 → C.EDB 20:37
DX: I35.0 Nonrheumatic aortic (valve) stenosis (principal); I21.4 Non-ST elevation (NSTEMI) myocardial infarction; I50.9 Heart failure, unspecified; J90 Pleural effusion, not elsewhere classified; I51.7 Cardiomegaly